=== PATIENT | male | born 1985 | race Caucasian/White ===

== ENCOUNTER 2016-11-30 10:24 | Emergency (ER) | payer MEDICAID, OTHER ==
[~2016-11-30] VITALS: Ht 200.7 cm; Wt 150.0 kg
[~2016-11-30 10:24] MED LIST: CYCL-36 PO; IBUP800T23 PO
[2016-11-30 10:28] VITALS: BP 139/89; PULSE 113; RESP 14; TEMP 98.1; O2SAT 98
--- NOTE | 2016-11-30 11:36 | PD ---
HPI Chief Complaint: Musculoskeletal Complaint Stated Complaint: LEFT LEG PAIN Time Seen by Provider: 11:36 Travel History International Travel<30 days: No Contact w/Intl Traveler<30days: No Known affected area: No History of Present Illness HPI This is a 31-year-old male who reports no medical history, presents to the emergency department requesting surgical intervention on his left knee. Patient was seen and evaluated on November 23, 2016 after a misstep and fall. He was evaluated for [facility]. He was diagnosed with a transverse medial tibial plateau fracture without depression and with minimal impaction there is also a small suprapatellar joint effusion demonstrated. CT of the left knee at that time she has a minimally impacted transverse fracture of the medial tibial plateau with a comminuted predominantly vertically oriented fracture of the lateral tibial plateau with minimal distraction of the fracture fragments and slight depression at the level of the joint space. There is moderate hemarthrosis within the suprapatellar bursa. Patient states that he has gone through the preop workup with EKG, chest x-ray, and lab work. He was instructed to follow-up with an orthopedic surgeon of which he does not remember his or her knee. CT with those have surgery today but was informed today that they do not take his insurance so he came here hoping for surgical intervention. Patient does report pain of the left knee and reports taking his last Percocet 10/325 this morning. He is requesting a refill.. He reports following discharge instructions. He has been in a knee immobilizer. History Social History Alcohol Use: No Tobacco Use: No Allergies-Medications (Allergen,Severity, Reaction): Coded Allergies: No Known Allergies (Unverified , 11/30/16) Reported Meds & Prescriptions Reported Meds & Active Scripts Active Percocet (Oxycodone-Acetaminophen) 5-325 mg Tab 1 Tab PO Q6H PRN Review of Systems Except as stated in HPI: all other systems reviewed are Neg Physical Exam Narrative GENERAL: Well-nourished male patient, in no acute distress SKIN: Warm and dry. HEAD: Atraumatic. Normocephalic. EYES: Pupils equal and round. No scleral icterus. No injection or drainage. ENT: No nasal bleeding or discharge. Mucous membranes pink and moist. NECK: Trachea midline. No JVD. CARDIOVASCULAR: Tachycardic rate and rhythm. No murmur appreciated. RESPIRATORY: No accessory muscle use. Clear to auscultation. Breath sounds equal bilaterally. GASTROINTESTINAL: Abdomen soft, non-tender, nondistended. Hepatic and splenic margins not palpable. MUSCULOSKELETAL: No obvious deformities. No clubbing. No cyanosis. Left lower extremity knee immobilizer and place. His pulses are palpable. Cap refills within normal limits. Sensation intact distal affected extremity. NEUROLOGICAL: Awake and alert. No obvious cranial nerve deficits. Motor grossly within normal limits. Normal speech. PSYCHIATRIC: Appropriate mood and affect; insight and judgment normal. Data Data Last Documented VS Vital Signs Date Time Temp Pulse Resp B/P Pulse Ox O2 Delivery O2 Flow Rate FiO2 11/30/16 10:28 98.1 113 14 139/89 98 Orders Oxycodone-Acetamin 10-325 Mg (Percocet 1 (11/30/16 13:30) MDM Medical Decision Making Medical Screen Exam Complete: Yes Emergency Medical Condition: Yes Medical Record Reviewed: Yes Differential Diagnosis Tibial plateau fracture versus sprain versus contusion Narrative Course 31-year-old male presents to emergency department for evaluation of a tibial plateau fracture of his left knee diagnosed November 23, 2016. Patient was allegedly supposed to have surgical intervention by Dr. Mendoza at [facility] today but was unable to afford the upfront full payment which he states was required. He came here hoping for surgical intervention. I have obtained the records from [facility]. These confirm patient was supposed to have follow-up on November 28 with possible surgical intervention on November [address] Bethel mendoza however the patient did not do this. After several attempts of contacting Dr. mendoza in no return call, I contacted Dr. Lindsey our orthopedic surgeon front services agent. I reviewed the report I obtained with him. He was able to access the patient's CT from his office. He states the patient can be discharged home with pain control, and tinea nonweightbearing on the affected extremity and wearing his immobilizer and to follow-up in his office. Plan is reviewed with the patient. He is provided pain control and discharged at this time. Diagnosis Primary Impression: Tibial plateau fracture, left Qualified Code: S82.142D - Tibial plateau fracture, left, closed, with routine healing, subsequent encounter Referrals: Brain Lindsey MD Primary Care Physician Patient Instructions: General Instructions, Leg Fracture (DC) Additional Instructions: Ice and elevation to reduce pain and swelling Continue to wear immobilizer No weightbearing for lower extremity Follow-up with a primary care provider Contact Dr. Lindsey's office for follow-up Return immediately to the emergency department with any acute worsening symptoms Med/Other Pt SpecificInfo: Prescription(s) given Scripts Oxycodone-Acetaminophen (Percocet)5-325 mg Tab1 Tab PO Q6H PRN (PAIN) #15 TAB Ref 0 Prov:La Nena Huddleston 11/30/16 Disposition: 01 DISCHARGE HOME Condition: Stable La Nena Huddleston Nov 30, 2016 11:36
[2016-11-30] MEDS ORDERED: oxyCODONE/ACETAMINOPHEN 10 MG/325 MG TAB PO ONE (13:30)
[2016-11-30] MEDS ORDERED: PERC5TAB12 PO (14:25)
== END 2016-11-30 15:03 | disposition home or self-care (01) ==
LOC: EDBD → NETRI 10:24 → NEPB 15:03
DX: S82.142A Displaced bicondylar fracture of left tibia, initial encounter for closed fracture (principal); W19.XXXA Unspecified fall, initial encounter
CPT/HCPCS: 99283